=== PATIENT | male | born 1995 ===

== ENCOUNTER → 2018-01-24 | Outpatient (CLI) | payer OTHER | LOC: COL.RAD 01-18 14:45 | DX: S83.511A Sprain of anterior cruciate ligament of right knee, initial encounter (principal); S83.206A Unspecified tear of unspecified meniscus, current injury, right knee, initial encounter; M94.261 Chondromalacia, right knee ==

== ENCOUNTER 2018-04-17 16:29 | Emergency (ER) | payer OTHER ==
[~2018-04-17] VITALS: Ht 193 cm; Wt 104.5 kg
[2018-04-17 16:34] VITALS: TEMP 99.8
[2018-04-17] MEDS ORDERED: NORCO 325 MG-7.1 TAB PO (16:37)
[2018-04-17] MEDS ORDERED: CEPHALEXIN500 M1 PO (16:38)
[2018-04-17 17:51] LABS: BASO # 0.1 (0.0-0.2); BASO % 0.6 % (0.0-2.0); EOS # 0.2 (0.0-0.7); EOS % 1.2 % (0-4.0); GRAN # 9.8 (1.4-6.5); GRAN % 72.6 % (42.2-75.2); HEMATOCRIT 43.7 % (42.0-52.0); HEMOGLOBIN 15.1 g/dl (13.5-18.0); LYMPH % 15.1 % (20.0-51.0); MEAN CELL VOLUME 85 fl (80.0-100.0); MEAN CORPUSCULAR HEMOGLOBIN 29 pg (27.0-31.0); MEAN CORPUSCULAR HGB CONC 35 g/dl (33.0-37.0); MEAN PLATELET VOLUME 10.4 fl (7.4-10.4); MONO # 1.4 (0.1-0.6); MONO % 10.1 % (1.7-9.3); PLATELET COUNT 258 K/mm3 (130-400); RED BLOOD COUNT 5.16 M/mm3 (4.20-5.60); REDCELL DISTRIBUTION WIDTH-CV 12.1 % (11.5-14.5)
[2018-04-17 18:02] LABS: ALBUMIN 4.4 gm/dL (3.5-5.0); BILIRUBIN,TOTAL 0.8 mg/dL (0.0-1.0); C-REACTIVE PROTEIN 7.5 mg/dL (0.0-0.9); CALCIUM 9.9 mg/dL (8.4-10.2); CREATININE, serum 0.95 mg/dL (0.66-1.25); POTASSIUM 3.8 mmol/L (3.4-5.0); TOTAL PROTEIN 7.6 gm/dL (6.4-8.2)
[2018-04-17 18:32] LABS: ERYTHROCYTE SEDIMENTATION RATE 13 mm/hr (0-15)
[2018-04-17] MEDS ORDERED: ROXICODONE 55 MG/TAB PO (18:59)
[2018-04-17 19:25] VITALS: BP 121/62; PULSE 65
== END 2018-04-17 19:25 | disposition home or self-care (01) ==
LOC: COL.ER 16:29
PROVIDERS: Emergency Medicine
DX: G89.18 Other acute postprocedural pain (principal); M25.561 Pain in right knee; Z98.890 Other specified postprocedural states
CPT/HCPCS: J1170; J1885; L1846